=== PATIENT | male | born 1960 | race Caucasian/White ===

== ENCOUNTER 2019-04-30 15:01 | Emergency (ER) | payer OTHER ==
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
[2019-04-30] MEDS ORDERED: CETIRIZINE 10 MG TABLET PO STA (16:25)
[2019-04-30] MEDS ORDERED: diphenhydrAMINE 25 MG CAPSULE PO STA (16:25)
[2019-04-30] MEDS ORDERED: FAMOTIDINE 20 MG TABLET PO STA (16:25)
[2019-04-30] MEDS ORDERED: DEXAMETHASONE 10 MG/ML VIAL IM STA (16:25)
[2019-04-30] MEDS ORDERED: CHERRY SYRUP 10 ML UDC PO ONE (16:40)
[2019-04-30 16:55] VITALS: BP 120/75
== END 2019-04-30 16:57 | disposition home or self-care (01) ==
LOC: ED 15:01
DX: T63.461A Toxic effect of venom of wasps, accidental (unintentional), initial encounter (principal); X58.XXXA Exposure to other specified factors, initial encounter; Y93.H9 Activity, other involving exterior property and land maintenance, building and construction
CPT/HCPCS: 96372; 99284; A9270

== ENCOUNTER 2021-11-23 21:22 | Emergency (ER) | payer SELFPAY ==
[2021-11-23 21:35] VITALS: BP 138/73
--- NOTE | 2021-11-23 22:03 | XRAY Report ---
PROCEDURE: Tib/Fib LT INDICATIONS: fell hit L leg/[place] on a [employer], c/o pain. TECHNIQUE: 2 views of the tibia and fibula were acquired. COMPARISON: none. FINDINGS: Bones: No acute fractures or dislocations. No suspicious bony lesions. Soft tissues: No suspicious soft tissue calcifications or masses. Soft tissue swelling and suspecte d laceration over the medial, proximal aspect of the lower leg. IMPRESSION: Left tibial/fibula without acute fracture or dislocation. If there is persistent clinical concern for occult fracture, recommend follow up imaging in 10-14 da ys. Reviewed by: Allen Johnson MD on 11/23/2021 10:02 PM PDT Approved by: Allen Johnson MD on 11/23/2021 10:02 PM PDT Station ID: [id number]
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
== END 2021-11-23 23:40 | disposition home or self-care (01) ==
LOC: ED 21:22
DX: S80.12XA Contusion of left lower leg, initial encounter (principal); S81.812A Laceration without foreign body, left lower leg, initial encounter; W18.31XA Fall on same level due to stepping on an object, initial encounter
CPT/HCPCS: 99282; 99283